=== PATIENT | female | born 1975 | race Caucasian/White ===

== ENCOUNTER 2020-02-01 23:54 | Emergency (ER) | payer SELFPAY ==
[~2020-02-01] VITALS: Ht 167.6 cm; Wt 72.6 kg
[2020-02-02] MEDS ORDERED: LORazepam 2MG/ML-1ML VIAL ONE (00:27)
[2020-02-02] MEDS ORDERED: SODIUM CHLORIDE 0.9% 1,000 ML IV ONE (01:00)
[2020-02-02] MEDS ORDERED: LORazepam 2MG/ML-1ML VIAL IV ONE (01:00)
[2020-02-02 01:52] LABS: Basophils # (auto) 0 10 ^3/uL (0-0.2); Basophils % (auto) 0.4 % (0.0-2.0); Eosinophils # (auto) 0 10 ^3/uL (0-0.8); Hematocrit 35.7 % (36.0-46.0); Hemoglobin 11.7 g/dL (12.2-16.2); Lymphocytes # (auto) 0.6 10 ^3/uL (0.4-5.4); Mean Corpuscular Hemoglobin 32.5 pg (28.0-32.0); Mean Corpuscular Hgb Conc. 32.8 g/dL (32.0-36.0); Mean Corpuscular Volume 99.1 fL (80.0-100.0); Monocytes # (auto) 0.6 10 ^3/uL (0-1.3); Monocytes % (auto) 6.1 % (0.0-12.0); Neutrophils # (auto) 8.9 10 ^3/uL (1.6-8.6); Neutrophils % (auto) 87.5 % (37.0-80.0); Nucleated Red Blood Cells % 0.1 %; Platelet Count (auto) 200 10^3/uL (140-450); Red Cell Distribution Width 16.3 % (11.8-14.3); White Blood Cell 10.1 10^3/uL (4.4-10.8)
[2020-02-02 02:09] LABS: Albumin 2.9 g/dL (3.4-5.0); Anion Gap 8 (5-15); BUN/Creatinine Ratio 4.3; Blood Alcohol < 3.0 mg/dL (0-5); Blood Urea Nitrogen 3 mg/dL (7-18); Calcium 7.6 mg/dL (8.5-10.1); Carbon Dioxide 24 mmol/L (21-32); Chloride 105 mmol/L (98-107); GFR African American 118 mL/min; GFR Non-African American 97 mL/min; Glucose 108 mg/dL (74-106); INR 1.07 (0.9-1.15); Magnesium 1.3 mg/dL (1.6-2.6); Partial Thromboplastin Time 25.5 sec (23.64-32.05); Potassium 3.4 mmol/L (3.5-5.1); Sodium 137 mmol/L (136-145)
[2020-02-02 02:13] LABS: Alanine Aminotransferase 42 U/L (13-56); Alkaline Phosphatase 67 U/L (45-117); Aspartate Aminotransferase 80 U/L (15-37); Bilirubin, Total 0.6 mg/dL (0.2-1.0); Total Protein 6.6 g/dL (6.4-8.2)
[2020-02-02 02:32] LABS: Alcohol, Urine < 3.0 mg/dL (0-5); Amphetamine Screen, Urine NEGATIVE (NEGATIVE); Barbiturate Scree,Urine NEGATIVE (NEGATIVE); Benzodiazephine Screen, Urine NEGATIVE (NEGATIVE); Cannabinoid Screen, Urine POSITIVE (NEGATIVE); Opiate Scree,Urine NEGATIVE (NEGATIVE); Phencyclidine Screen, Urine NEGATIVE (NEGATIVE)
[2020-02-02 02:39] LABS: Cocaine Screen, Urine NEGATIVE (NEGATIVE)
[2020-02-02] MEDS ORDERED: levETIRAcetam 500 MG/5ML INJ IV ONE (02:48)
[2020-02-02] MEDS ORDERED: cefTRIAXone 1GM/50ML D5W 50 ML IV ONE (03:00)
[2020-02-02] MEDS ORDERED: MAGNESIUM SULFATE 1GM/100ML 100 ML IV ONE (03:45)
[2020-02-02 06:00] VITALS: BP 127/82
== END 2020-02-02 06:45 | disposition home or self-care (01) ==
LOC: ER 23:58
DX: F10.239 Alcohol dependence with withdrawal, unspecified (principal); J18.8 Other pneumonia, unspecified organism; R41.0 Disorientation, unspecified
CPT/HCPCS: 36415; 70450; 71045; 72125; 80053; 80307; 80320; 82728; 83735; 85025; 85610; 85730; 87040; 87070; 87804; 87880; 93005; 96361; 96365; 96367; 96368; 96375; 99285; J0696; J1953; J2060; J3475; J7060; U0003; 96374